=== PATIENT | female | born 1960 | race Caucasian/White ===

== ENCOUNTER → 2021-08-26 | Day surgery (SDC) | payer BC ==
[~2021-08-26] MED LIST: ESOM40CA PO; IPRATRPIUM/ALBUTEROL 0.5/2.5MG 3 ML NEBU. NEB PRN; IV RINGERS SOLUTION,LACTATED 1,000 ML IV SCH; LIDOCAINE 2% PF 5 ML VIAL. ONE; MIDAZOLAM HCL PF 2 MG/2 ML VIAL. IV ONE; ONDANSETRON PF 4 MG/2 ML VIAL. IV PRN; PROPOFOL 10,000 MCG/ML (20ML) VIAL IV ONE
[2021-08-26 12:31] VITALS: BP 138/83
--- NOTE | 2021-08-30 09:08 | PATHOLOGY ---
[facility] Accession Number: [id number] . 01 Material submitted: . PART A: stomach - ANTRUM BIOPSY PART B: esophagus - DISTAL ESOPHAGUS. Modifiers: distal PART C: gastrointestinal site - GASTRIC POLYP PART D: colon - RIGHT COLON BIOPSY. Modifiers: right PART E: colon - TRANSVERSE COLON BIOPSY. Modifiers: transverse PART F: colon - DESCENDING COLON BIOPSY. Modifiers: descending PART G: sigmoid colon - SIGMOID COLON BIOPSY PART H: rectum - RECTAL BIOPSY . 01 Clinical history: . VU'S, ULCERATIVE COLITIS EGD/COLONOSCOPY . 02 Diagnosis: A. Gastric biopsies, antrum: - Chronic gastritis, mild. . B. 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 . C. Gastric biopsies, gastric polyp: - Fundic gland polyp. . D. Colonic mucosa, right colon biopsies: - Segments of colonic mucosa containing several hyperplastic mucosal-associated lymphoid aggregates; no evidence of active chronic destructive colitis or dysplasia. . E. Colonic mucosa, transverse colon biopsies: - Segments of colonic mucosa containing 2 small hyperplastic mucosal-associated lymphoid aggregates; no evidence of active chronic destructive colitis or dysplasia. . F. Colonic mucosa, descending colon biopsies: - Segments of colonic mucosa containing few small mucosal-associated lymphoid aggregates; no evidence of active chronic destructive colitis or dysplasia. . G. Colonic mucosa, sigmoid colon biopsies: - Segments of colonic mucosa containing 2 small mucosal-associated lymphoid aggregates; no evidence of active chronic destructive colitis or dysplasia. . H. Colorectal mucosa, rectal biopsies: - Segments of rectal mucosa containing few focally hyperplastic mucosal-associated lymphoid aggregates; no evidence of active chronic destructive colitis or dysplasia. . (DEA:nixon; 08/29/2021) MBDaisy 08/29/2021 1737 Local . 02 Comment: Sections of the gastric antral biopsy reveal segments of gastric antral and antral/body transition mucosa showing congestion and very mild chronic inflammation. A properly controlled immunoperoxidase stain for Helicobacter is negative for Helicobacter organisms. . Sections of the distal esophageal biopsy reveal 2 segments of columnar-lined mucosa showing mild to moderate chronic inflammation and extensive intestinal metaplasia with goblet cells consistent with Vu's change. There is no squamous esophageal mucosa present. There is no dysplasia or evidence of malignancy. . Sections of the gastric polyp biopsy reveal a fundic gland polyp. There are no adenomatous changes or evidence of malignancy. . Sections of the right colon, transverse colon, descending colon, sigmoid colon, and rectal biopsies appear similar and reveal multiple segments of colonic and rectal mucosa containing several, focally hyperplastic mucosal-associated lymphoid aggregates. There is no evidence of an active chronic destructive colitis. There is no evidence of dysplasia or malignancy. . (JPM:nixon; 08/29/2021) . . Special stain performed: Immunoperoxidase stain for Helicobacter on A1 . 02 Electronically signed: . Gustavo Keith MD, Pathologist NPI- [id number] . 01 Gross description: . A. Received in formalin labeled "Acosta, Viola, antrum BX" are 2 dougherty-brown soft tissue fragments measuring in aggregate 0.7 x 0.3 x 0.1 cm. The specimen is submitted entirely in A1. . B. Received in formalin labeled "Acosta, Viola, distal esophagus BX" are 2 dougherty-brown soft tissue fragments measuring in aggregate 0.5 x 0.3 x 0.1 cm. The specimen is submitted entirely in B1. . C. Received in formalin labeled "Tanja Shanea, gastric polyp" are 2 dougherty-brown soft tissue fragments measuring in aggregate 0.4 x 0.2 x 0.1 cm. The specimen is submitted entirely in C1. . D. Received in formalin labeled "Shane, Viola, right colon BX" are multiple dougherty-brown soft tissue fragments measuring in aggregate 0.5 x 0.4 x 0.1 cm. The specimen is submitted entirely in D1. . E. Received in formalin labeled "Shane, Viola, transverse colon BX" are multiple dougherty-brown soft tissue fragments measuring in aggregate 0.7 x 0.4 x 0.1 cm. The specimen is submitted entirely in E1. . F. Received in formalin labeled "Shane, Viola, descending colon BX" are multiple dougherty-brown soft tissue fragments measuring in aggregate 1.0 x 0.5 x 0.1 cm. The specimen is submitted entirely in F1. . G. Received in formalin labeled "Viola Shane, sigmoid colon BX" are multiple dougherty-brown soft tissue fragments measuring in aggregate 1.2 x 0.3 x 0.1 cm. The specimen is submitted entirely in G1. . H. Received in formalin labeled "Viola Shane, rectal BX" are multiple dougherty-brown soft tissue fragments measuring in aggregate 0.5 x 0.5 x 0.1 cm. The specimen is submitted entirely in H1. ([facility] [place]; 08/28/2021) [facility] 08/28/2021 0905 Local . 02 Pathologist provided ICD-10: K29.50, K20.90, K31.7, K22.70, K51.80, Z12.11 . 02 CPT . 260094, 962403, 448219, 436068, 844444, 521920, 314871, [id number], [id number] Specimen Comment: A courtesy copy of this report has been sent to [phone], [phone] Specimen Comment: [id number] Specimen Comment: Report sent to / DR QUIÑONEZ Specimen Comment: A duplicate report has been generated due to demographic updates. Performed at: 01 [facility] [address], [place] [id number] MD Gustavo Boyd MD Phone: [phone] Performed at: 02 [facility] [address] [place], [place] [id number] MD Gustavo Keith MD Phone: [phone]
== END | disposition home or self-care (01) ==
LOC: SURG 10:09 → EDUNIT# 12:00
PROVIDERS: ATTEND Internal Medicine Gastroenterology
DX: K62.5 Hemorrhage of anus and rectum (principal); K64.8 Other hemorrhoids; K21.00 Gastro-esophageal reflux disease with esophagitis, without bleeding; R12 Heartburn; K29.50 Unspecified chronic gastritis without bleeding; K22.70 Barrett's esophagus without dysplasia; K51.90 Ulcerative colitis, unspecified, without complications; K44.9 Diaphragmatic hernia without obstruction or gangrene; K31.7 Polyp of stomach and duodenum; K63.89 Other specified diseases of intestine; K31.89 Other diseases of stomach and duodenum; Z87.891 Personal history of nicotine dependence; Z79.899 Other long term (current) drug therapy; Z98.890 Other specified postprocedural states
CPT/HCPCS: 43239; 45380; J2001; J2704; J7120; 88305; 88342